=== PATIENT | female | born 1960 | race Caucasian/White ===

== ENCOUNTER 2024-12-22 17:16 | Emergency (ER) | payer OTHER ==
[~2024-12-22] VITALS: Ht 162.6 cm; Wt 71.7 kg
[2024-12-22] MEDS ORDERED: HYDROCODONE/APAP 5/325MG TABLET ONE (19:08)
[2024-12-22] MEDS: HYDROCODONE/APAP 5/325MG TABLET PO ONE (19:19)
[2024-12-22] MEDS ORDERED: HYDR-4303 PO (19:28)
[2024-12-22] MEDS ORDERED: FENTANYL PF 100MCG/2ML AMPUL ONE (19:45)
[2024-12-22] MEDS: FENTANYL PF 100MCG/2ML AMPUL IV ONE (19:47)
[2024-12-22 21:06] VITALS: BP 110/66; TEMP 98.2; O2SAT 97
== END 2024-12-22 21:15 | disposition home or self-care (01) ==
LOC: ER 17:50
DX: S52.042A Displaced fracture of coronoid process of left ulna, initial encounter for closed fracture (principal); I50.9 Heart failure, unspecified; E11.9 Type 2 diabetes mellitus without complications; V89.9XXA Person injured in unspecified vehicle accident, initial encounter; Y93.55 Activity, bike riding; Y92.488 Other paved roadways as the place of occurrence of the external cause; Y99.8 Other external cause status
CPT/HCPCS: 99285; 24600; 73080 ×2; J3010